=== PATIENT | female | born 1970 | race Caucasian/White ===

== ENCOUNTER → 2016-07-15 | Outpatient (CLI) | payer OTHER ==
[~2016-07-15] MED LIST: CLR10 PO; FLUT0.15 NAE
--- NOTE | 2016-07-16 08:14 | MAMMOGRAPHY REPORT ---
UNILATERAL RIGHT DIGITAL DIAGNOSTIC MAMMOGRAM TOMOSYNTHESIS WITH CAD AND TARGETED RIGHT ULTRASOUND: 07/15/2016 CLINICAL HISTORY: 45-year-old woman presents for follow-up of a nodular asymmetry in the 12:00 anter ior/subareolar right breast. Family history of breast cancer = mother. TECHNIQUE: Right CC and MLO 2-D digital and tomosynthesis images, spot indication right CC and ML vi ews were obtained. Current study was also evaluated with a Computer Aided Detection (CAD) system. COMPARISON: Comparison is made to exams dated: 01/13/2016 ultrasound, 01/13/2016 mammogram, 6 mammogram, and 07/15/2016 ultrasound - [facility]. BREAST COMPOSITION: The tissue of the right breast is heterogeneously dense, which may obscure smal l masses. FINDINGS: The 6 mm nodular focal asymmetry in the 12:00 anterior/subareolar right breast is less con spicuous on the current cc view, and no longer clearly identified on the MLO view. No persistent ma ss is seen on the corresponding tomosynthesis images. No focal area of architectural distortion or other suspicious masses identified. There are possible clustered microcalcifications in the upper o uter posterior right breast for which additional spot magnification views were obtained. On the spo t magnification views, the microcalcifications are loosely grouped, and punctate in morphology. Whe n comparing to prior available mammograms, these were likely present dating back to 2014 and possibl y 2013, suggesting benignity. However, a short interval follow-up diagnostic mammogram including sp ot magnification views is recommended to ensure stability in 6 months. Targeted ultrasound was performed in the 12:00 through 6:00 including retroareolar right breast. No rmal fibroglandular tissue is seen without a discrete solid or cystic mass. IMPRESSION: ACR-BI-RADS CATEGORY 3: PROBABLY BENIGN, TARGETED ULTRASOUND ACR-BI-RADS CATEGORY 3: [place] OBABLY BENIGN 1. Less conspicuous nodular asymmetry in the anterior subareolar right breast, and no suspicious so nographic correlate. This most likely represented normal overlapping fibroglandular tissue and no f urther close follow-up is needed at this time. 2. Incidentally identified loose grouping of punctate microcalcifications in the right upper outer quadrant that most likely represents benign fibrocystic changes, given 2-3 years of stability. Mathis gregorio, a short interval follow-up diagnostic mammogram including spot magnification views is recommend ed to ensure stability in 6 months, given the strong family history of breast cancer. These results and recommendations were discussed with the patient at the time of the exam. Hansa huitron mammography will be due at the time of six-month follow-up. Approximately 10% of breast cancers are not detected with mammography. A negative mammographic repor t should not delay biopsy if a clinically suggestive mass is present. Angela Joseph M.D. ay/:07/15/2016 13:05:46 [employer] Mechanic: Rosie Dewey, [facility] letter sent: Follow Up Recommended 3 BI-RADS Code: ACR-BI-RADS Category 3: Probably Benign Ultrasound BI-RADS: ACR-BI-RADS Category 3: P robably Benign
== END | disposition home or self-care (01) ==
LOC: C.MAMM 09:37
PROVIDERS: ATTEND Obstetrics & Gynecology
DX: N64.89 Other specified disorders of breast (principal); R92.0 Mammographic microcalcification found on diagnostic imaging of breast